=== PATIENT | male | born 1995 | race Two or more races ===

== ENCOUNTER 2019-05-12 15:21 | Emergency (ER) | payer MEDICAID ==
[~2019-05-12] VITALS: Ht 170.2 cm; Wt 71.2 kg
[2019-05-12 15:39] VITALS: BP 147/98; Ht 170.2 cm; Wt 71.2 kg
== END 2019-05-12 17:20 | disposition home or self-care (01) ==
LOC: ED 15:21
DX: J06.9 Acute upper respiratory infection, unspecified (principal)
CPT/HCPCS: 87804; Q0092